=== PATIENT | female | born 2000 | race Caucasian/White ===

== ENCOUNTER 2023-09-04 06:50 | Emergency (ER) | payer OTHER, SELFPAY ==
[2023-09-04] VITALS (8 sets, daily range): BP systolic 105–122; BP diastolic 57–76; PULSE 69–105; RESP 18; TEMP 36.9; O2SAT 97–99; BMI 26.4
--- NOTE | 2023-09-04 07:56 | ED_ITS ---
HPI - Skin/Abscess/Foreign Bdy General Chief complaint: Skin/Abscess/Foreign Body Stated complaint: crohns and has abcess Time Seen by Provider: 09/04/23 07:28 Source: patient Mode of arrival: Ambulatory Limitations: no limitations History of Present Illness HPI narrative: 23-year-old female with diagnosis of Crohn's and perirectal abscess who follows with Dr. Nolan for gastroenterology at [facility] and Dr. Mayers's colorectal surgeon at [facility] in [place]. Patient states she has had known perirectal abscess she had a seton placed and still present. She is been following with the surgeon and their discussion about placing a new 1. She had been asymptomatic in terms of pain or discomfort so they just been following. She states she is had increasing pain that is now radiating from the rectal area up towards her tailbone which is atypical and a little bit over onto the buttock. She has not appreciated new redness or swelling of the soft tissue. She has had increased pain. She denies fevers. No chest pain or shortness of breath, no nausea or vomiting. States pain seems to be more rectal and buttock and not in her abdomen. She is had diarrhea like stools she had some blood 3 days ago. No black stools. No dysuria urgency or frequency no vaginal bleeding or discharge. Patient states she is currently off any medications for her Crohn's she is been on 5 biologics that she is failed in the past, found 1 that was working but moved here in March and with changes of insurance has not been able to get authorized to restart it. She has had an oophorectomy on the left at age 2. Denies other surgeries. No known drug allergies. Tobacco, occasional alcohol, no recreational drugs. Primary care is through the [facility]. Related Data Allergies Allergy/AdvReac Type Severity Reaction Status Date / Time No Known Drug Allergies Allergy Verified 09/04/23 07:14 Review of Systems Review of Systems ROS Unobtainable: All systems reviewed & are unremarkable except as noted in HPI and below Patient History Social History Smoking Status: Never smoker Smoking Status: Never smoker alcohol intake frequency: other Substance Use Type: does not use Exam Narrative Exam Narrative: GENERAL: Alert and oriented x three, well-appearing female in mild distress. HEENT: Head normocephalic, atraumatic, EOMI, pupils reactive, face symmetric, moist mucous membranes NECK: Supple, full range of motion CARDIOVASCULAR: Regular rate and rhythm without murmurs, rubs or gallops. RESPIRATORY: Breath sounds equal bilaterally, no wheezes rales or rhonchi. ABDOMEN: Soft, nontender. Normoactive bowel sounds all 4 quadrants. No guarding or rebound, rigidity, no mass, patient has seton visualized on exam. There is some slight erythema, swelling does not appear to be any obvious abscess or fluctuance above over the gluteal crease. Rectal exam was deferred patient states she has had exam under anesthesia in the past. : No CVA tenderness EXTREMITIES: Normal range of motion, no clubbing or edema. Neurovascularly intact NEUROLOGICAL: Cranial nerves II through XII grossly intact. Moving all extremities SKIN: Warm, dry, no petechiae, no rashes or lesions. Initial Vital Signs Initial Vital Signs: Vital Signs Temperature 98.5 F 09/04/23 07:15 Pulse Rate 105 H 09/04/23 07:15 Respiratory Rate 18 09/04/23 07:15 Pulse Oximetry 99 09/04/23 07:15 Oxygen Delivery Method Room Air 09/04/23 07:15 Course Orders Ordered: ED Orders 09/04/23 08:05 CT abdomen pelvis w con Stat 09/04/23 08:15 CBC Auto Diff [Complete Blood Count AUTO DIFF] Stat CMP [Comprehensive Metabolic Panel] Stat Lipase Stat UA dip and micro [Urinalysis and Microscopic] Stat Urine Culture Stat Discontinued Medications Sodium Chloride (Normal Saline 0.9%) 1,000 mls @ 1,000 mls/hr IV BOLUS ONE Stop: 09/04/23 09:04 Last Infusion: 09/04/23 09:22 Dose: Infused Documented By: Admin: 09/04/23 08:18 Dose: 1,000 mls/hr Documented By: MAINOR Vital Signs Vital signs: Vital Signs - 8 hr 09/04/23 07:15 09/04/23 08:19 09/04/23 08:20 Temperature 98.5 F Pulse Rate 105 H 99 H 89 Respiratory Rate 18 Blood Pressure Pulse Oximetry 99 97 97 Oxygen Delivery Method Room Air 09/04/23 08:20 09/04/23 08:30 09/04/23 08:30 Temperature Pulse Rate 83 Respiratory Rate Blood Pressure 122/74 120/76 Pulse Oximetry 97 Oxygen Delivery Method 09/04/23 08:40 09/04/23 08:40 09/04/23 09:00 Temperature Pulse Rate 91 H 76 Respiratory Rate Blood Pressure 117/71 Pulse Oximetry 99 98 Oxygen Delivery Method 09/04/23 09:00 09/04/23 09:30 09/04/23 09:30 Temperature Pulse Rate 77 Respiratory Rate Blood Pressure 112/69 105/57 L Pulse Oximetry 99 Oxygen Delivery Method 09/04/23 10:00 09/04/23 10:00 Temperature Pulse Rate 69 Respiratory Rate Blood Pressure 108/66 Pulse Oximetry 98 Oxygen Delivery Method MDM - Skin/Abscess/Foreign Bdy Lab Data 09/04/23 08:15 09/04/23 08:15 Labs: Lab Results 09/04/23 Range/Units 08:15 WBC 10.6 (4.5-11.0) X10^3/uL RBC 4.65 (4.0-5.2) X10^6/uL Hgb 13.8 (12.0-16.0) g/dL Hct 40.0 (36-46) % MCV 86.0 (80-100) fL MCH 29.7 (26-34) PG MCHC 34.5 (30-36) % RDW 13.0 (11.6-14.8) % Plt Count 291 (150-400) X10^3/uL Neut % (Auto) 75.0 (50-75) % Lymph % (Auto) 14.2 L (25-40) % [place] % (Auto) 7.7 (3-14) % Eos % (Auto) 2.6 (2-4) % Baso % (Auto) 0.5 (0-2) % Neut # (Auto) 8000 H (1567-5553) /uL Lymph # (Auto) 1500 (4175-8415) /uL [place] # (Auto) 800 (0-900) /uL Eos # (Auto) 300 (0-450) /uL Baso # (Auto) 100 (0-100) /uL Sodium 138 (137-145) mmol/L Potassium 4.0 (3.4-5.1) mmol/L Chloride 105 (98-107) mmol/L Carbon Dioxide 28 (22-32) mmol/L BUN 9 (7-17) mg/dL Creatinine 0.58 (0.52-1.04) mg/dL Estimated GFR > 60 (>60) mL/min BUN/Creatinine Ratio 15.5 (6-22) Glucose 101 H (70-100) mg/dL Calcium 9.3 (8.4-10.2) mg/dL Total Bilirubin 0.6 (0.2-1.3) mg/dL AST 29 (14-36) IU/L ALT 38 H (<35) IU/L Alkaline Phosphatase 103 (38-126) U/L Total Protein 7.6 (6.3-8.2) g/dL Albumin 3.9 (3.5-5.0) g/dL Globulin 3.7 (1.7-4.1) g/dL Albumin/Globulin Ratio 1.1 (1.0-2.8) Lipase 99 (23-300) U/L Serum , Qual Cancelled Urine Color Yellow Urine Appearance Clear Urine pH 6.5 (4.5-8.0) Ur Specific [place] 1.025 (1.000-1.035) Urine Protein Negative (Negative) Urine Glucose (UA) Negative (Negative) g/dL Urine Ketones Negative (NEGATIVE) Urine Occult Blood Negative (Negative) Urine Nitrate Negative (Negative) Urine Bilirubin Negative (NEGATIVE) Urine Urobilinogen 0.2 (0.2) E.U./dL Ur Leukocyte Esterase Negative (NEGATIVE) Urine RBC None seen (0-5/HPF) Urine WBC 0-1/hpf (0-5/HPF) Ur Squamous Epith Cells >30 /hpf H (0-5/HPF) Urine Bacteria Many (>30) H (None) Urine Mucus 1+ H (Negative) Ur Culture Indicated? Specimen cultured Point of Care Testing Test Results Negative Imaging Data CT scan - abdomen/pelvis: Radiologist's Impression: [address] [address] [address] Scan Report Signed Patient: Marimar Douglas MR#: [id number] : 2000 Acct:[id number] Age/Sex: 23 / F Date of Service: 09/04/23 Loc: ED Accession Number: [id number] Procedure: CT abdomen pelvis w con Ordering Provider: Alise Carranza D.O. PROCEDURE: CT ABDOMEN PELVIS W CON INDICATIONS: rectal pain, hx perirectal abscess. Crohn's disease. TECHNIQUE: After the administration of intravenous contrast, axial sections acquired from the lung bases to the pubic symphysis. Coronal and sagittal reformats were performed. For radiation dose reduction, the following was used: automated exposure control, adjustment of mA and/or kV according to patient size. COMPARISON: None. FINDINGS: Image quality: Excellent. Lung bases: Unremarkable. Heart: No significant findings. ABDOMEN: Liver: Incidental note made of focal near the ligament. Otherwise unremarkable. Gallbladder: Unremarkable. Biliary ducts: Unremarkable. Pancreas: Unremarkable. Spleen: Unremarkable. Adrenal Glands: Unremarkable. Kidneys and Ureters: Unremarkable. Stomach and Bowel: There is diffuse thickening of the wall of the terminal ileum consistent with probably chronic changes Crohn's terminal ileitis. The colon is unremarkable aside for near rectal prolapse. Peritoneum: No abnormal intraperitoneal fluid. No free air. No abscess cavity Ventral Wall: No hernias. Abdominal Nodes: No retroperitoneal or mesenteric adenopathy by size criteria. Vessels: Aorta and inferior vena cava are normal in size. PELVIS: Pelvic Organs: Uterus unremarkable. 2.7 cm right adnexal cyst. Physiologic pelvic fluid.. Bladder: Unremarkable. Pelvic Nodes: No enlarged lymph nodes. Miscellaneous: There is a perirectal device in place which enters the perineum close to the anus, which allows a known perirectal abscess to drain. It has a loop configuration. No residual perirectal fluid is noted. Reference sagittal image 44 of series 5. There is near rectal prolapse. The rectum is very close to the skin surface. Bones: Unremarkable. IMPRESSION: 1. Terminal ileum findings are consistent with chronic changes from Crohn's disease. 2. There is a device in place to keep a perirectal abscess draining to the outside world. There is no accumulated fluid in the perirectal region. No residual abscess identified. 3. Near prolapse of the rectum. Dictated by: Deniz Varma M.D. on 09/04/2023 at 8:58 Approved by: Deniz Varma M.D. on 09/04/2023 at 9:09 MDM Narrative Medical decision making narrative: This is a 23-year-old female with Crohn's who is had difficulty finding maintenance medications who is currently off medication secondary to insurance issues with a move in March. Patient follows with Gastroenterology and colorectal surgery through [facility] in [place]. Patient has had perirectal abscess in the past has a seton in place there is discussion about having a 2nd 1 placed. She is had increasing pain and symptoms with change in location moving up into the tailbone region and off into the buttock. She states this is atypical. She has had an MRI 2 months ago I do not have these results available. She is scheduled for a repeat MRI of the abdomen in the next week. Patient states she was instructed by her surgeon to come to the ER for further evaluation if worsening symptoms. CBC shows normal white count hemoglobin platelets. CMP shows normal electrolytes LFTs glucose is 101 ALT is 38. Urine shows squamous cells, many bacteria but mucus. Patient urine sent for culture. We will hold off on treating patient does not have urinary symptoms. Patient's CT shows diffuse wall thickening of the terminal ileum consistent with chronic Crohn's terminal ileitis: Is unremarkable side for near rectal prolapse, no normal intraperitoneal air, no free fluid, no free air, no abscess cavity. They do note the device in place. Discussed with Dr. Rodney, general surgery discussed exam there is some puckering but no obvious prolapse on examination I can see the seton in place. Patient has not increased pain but no other new changes. Patient labs do not have significant abnormalities or vital sign changes. He states he would have her follow up with her colorectal team. Discussed findings with patient. Asked patient to follow up with her colorectal surgeon there is no obvious sign of infection there does appear to be some new near prolapse. Patient already has chronic diarrhea would not add stool softeners at this time. She states not super painful she does not need any additional pain medication reviewed to share this information with her colorectal team and did give them a call today. Did discuss return precautions all signs and symptoms to watch for. Discharge Plan Departure Patient Disposition: Home Clinical Impression: Anal or rectal pain, Crohn's disease Activity Restrictions/Additional Instructions: Follow-up with your colorectal surgeon, Dr. Brice and can sealer Dr. Nolan. I hope you start to feel improved. Your imaging today does not show any abscess or fluid collection. I do recommend keeping your MRI appointment. The seton device is noted there is no new signs of infection they do note that the rectum has some bulge or near prolapse discussed these findings with the your colorectal surgeon. Please return for fevers rapidly worsening pain, increasing bloody stools over large clots, lightheadedness or passing out, new abdominal back or flank pain, new redness swelling or other skin changes or other new or concerning changes. Stand Alone Forms: Patient Portal/API
--- NOTE | 2023-09-04 08:05 | DI.CT.S_ITS ---
PROCEDURE: CT ABDOMEN PELVIS W CON INDICATIONS: rectal pain, hx perirectal abscess. Crohn's disease. TECHNIQUE: After the administration of intravenous contrast, axial sections acquired from the lung bases to the pubic symphysis. Coronal and sagittal reformats were performed. For radiation dose reduction, the following was used: automated exposure control, adjustment of mA and/or kV according to patient size. COMPARISON: None. FINDINGS: Image quality: Excellent. Lung bases: Unremarkable. Heart: No significant findings. ABDOMEN: Liver: Incidental note made of focal near the ligament. Otherwise unremarkable. Gallbladder: Unremarkable. Biliary ducts: Unremarkable. Pancreas: Unremarkable. Spleen: Unremarkable. Adrenal Glands: Unremarkable. Kidneys and Ureters: Unremarkable. Stomach and Bowel: There is diffuse thickening of the wall of the terminal ileum consistent with probably chronic changes Crohn's terminal ileitis. The colon is unremarkable aside for near rectal prolapse. Peritoneum: No abnormal intraperitoneal fluid. No free air. No abscess cavity Ventral Wall: No hernias. Abdominal Nodes: No retroperitoneal or mesenteric adenopathy by size criteria. Vessels: Aorta and inferior vena cava are normal in size. PELVIS: Pelvic Organs: Uterus unremarkable. 2.7 cm right adnexal cyst. Physiologic pelvic fluid.. Bladder: Unremarkable. Pelvic Nodes: No enlarged lymph nodes. Miscellaneous: There is a perirectal device in place which enters the perineum close to the anus, which allows a known perirectal abscess to drain. It has a loop configuration. No residual perirectal fluid is noted. Reference sagittal image 44 of series 5. There is near rectal prolapse. The rectum is very close to the skin surface. Bones: Unremarkable. IMPRESSION: 1. Terminal ileum findings are consistent with chronic changes from Crohn's disease. 2. There is a device in place to keep a perirectal abscess draining to the outside world. There is no accumulated fluid in the perirectal region. No residual abscess identified. 3. Near prolapse of the rectum. Dictated by: Deniz Varma M.D. on 09/04/2023 at 8:58 Approved by: Deniz Varma M.D. on 09/04/2023 at 9:09
[2023-09-04] MEDS: SODIUM CHLORIDE 0.9% 1,000 ML 1000 ML IV (08:18)
[2023-09-04 08:25] LABS: Appearance Urine UA CLEAR; Bilirubin Urine UA NEGATIVE (NEGATIVE); Color Urine UA YELLOW; Glucose Urine UA NEGATIVE (Negative); Ketones Urine UA NEGATIVE (NEGATIVE); Leukocyte Esterase Urine UA NEGATIVE (NEGATIVE); Nitrite Urine UA NEGATIVE (Negative); Occult Blood Urine UA NEGATIVE (Negative); Protein Urine UA NEGATIVE (Negative); Specific Gravity Urine UA 1.025 (1.000-1.035); Urobilinogen Urine UA 0.2 E.U./dL (0.2)
[2023-09-04 08:30] LABS: Add Manual Diff / Slide Review NO; Basophils Absolute Auto 100 /uL (0-100); Basophils Percent Auto 0.5 % (0-2); Eosinophils Absolute Auto 300 /uL (0-450); Eosinophils Percent Auto 2.6 % (2-4); Hemoglobin 13.8 g/dL (12.0-16.0); Lymphocytes Absolute Auto 1500 /uL (1100-4500); Lymphocytes Percent Auto 14.2 % (25-40); Mean Corpuscular HGB Conc 34.5 % (30-36); Mean Corpuscular Hemoglobin 29.7 PG (26-34); Monocytes Absolute Auto 800 /uL (0-900); Monocytes Percent Auto 7.7 % (3-14); Neutrophils Absolute Auto 8000 /uL (1500-7000); Platelet Count 291 X10^3/uL (150-400); Red Blood Cell Count 4.65 X10^6/uL (4.0-5.2); White Blood Cell Count 10.6 X10^3/uL (4.5-11.0)
[2023-09-04 08:34] LABS: pH Urine UA 6.5 (4.5-8.0)
[2023-09-04 08:36] LABS: Bacteria Urine Many (>30); RBC Urine None Seen (0-5/HPF); WBC Urine 0-1/HPF (0-5/HPF)
[2023-09-04 08:37] LABS: Culture Indicated Urine Specimen Cultured; Mucus Urine 1+ (Negative); Squamous Epithelial Cell Urine >30 /HPF (0-5/HPF)
[2023-09-04 08:40] LABS: Alanine Aminotransferase 38 IU/L (<35); Albumin 3.9 g/dL (3.5-5.0); Albumin Globulin Ratio 1.1 (1.0-2.8); Alkaline Phosphatase 103 U/L (38-126); Aspartate Aminotransferase 29 IU/L (14-36); BUN Creatinine Ratio 15.5 (6-22); Bilirubin Total 0.6 mg/dL (0.2-1.3); Blood Urea Nitrogen 9 mg/dL (7-17); Calcium 9.3 mg/dL (8.4-10.2); Carbon Dioxide 28 mmol/L (22-32); Chloride 105 mmol/L (98-107); Estimated Glomerular Filt Rate > 60 mL/min (>60); Globulin 3.7 g/dL (1.7-4.1); Glucose 101 mg/dL (70-100); HEMOLYSIS < 15 (0-50); Lipase 99 U/L (23-300); Sodium 138 mmol/L (137-145); Total Protein 7.6 g/dL (6.3-8.2)
== END 2023-09-04 10:21 | disposition home or self-care (01) ==
PROVIDERS: Emergency Provider Emergency Medicine
DX: K62.89 Other specified diseases of anus and rectum (principal); K50.90 Crohn's disease, unspecified, without complications
CPT/HCPCS: 74177; 80053; 81001; 81025; 83690; 85025; 87086; 99284; 99285; Q9967